=== PATIENT | male | born 1960 | race Caucasian/White ===

== ENCOUNTER 2021-04-30 21:07 | Emergency (ER) | payer OTHER | END 2021-05-01 00:25 | disposition left against medical advice (07) | LOC: ER 21:07 | DX: L02.91 Cutaneous abscess, unspecified (principal); Z53.21 Procedure and treatment not carried out due to patient leaving prior to being seen by health care provider ==

== ENCOUNTER 2021-10-31 20:15 | Inpatient (IN) | payer OTHER ==
[~2021-10-31] VITALS: Ht 190.5 cm; Wt 114.6 kg
[2021-10-31 20:15] VITALS: BP 178/104
[~2021-10-31 20:15] MED LIST: AMLO-186 PO; FLUT16SP NS; LACT20SO PO; ONDA4TAB12 PO; PROP120C48 PO
[2021-10-31] MEDS ORDERED: MORPHINE SULFATE 2 MG/ML INJ. IVP PRN (22:30)
[2021-10-31] MEDS ORDERED: ONDANSETRON PF 4 MG/2 ML VIAL. IVP PRN (22:30)
[2021-10-31] MEDS: DEXAMETHASONE SOD PHOS 4 MG/ML VIAL IVP SCH (22:44)
[2021-10-31 23:11] VITALS: BP 162/103
[2021-10-31] MEDS: HYDROcodone/APAP 5/325MG 1 TAB TABLET PO PRN (23:28)
[2021-10-31] MEDS ORDERED: PANT40TA77 PO (23:41)
[2021-10-31] MEDS ORDERED: MULT-732 PO (23:41)
[2021-11-01] VITALS (7 sets, daily range): BP systolic 144–189; BP diastolic 80–118
[2021-11-01] MEDS: HYDROmorphone 2 MG/ML INJ. IVP PRN ×7 (01:26→21:12)
[2021-11-01] MEDS: hydrALAZINE 20 MG/ML VIAL. IVP PRN ×2 (02:42→08:53)
[2021-11-01] MEDS: HYDROcodone/APAP 5/325MG 1 TAB TABLET PO PRN ×7 (02:43→22:45)
[2021-11-01 07:41] LABS: BASO % 1 % (0-3); EOS % 0 % (0-3); HEMOGLOBIN 13.3 g/dL (13.0-17.5); LYMPH # 0.5 x10^3/uL (1.0-4.8); LYMPH % 25 % (24-48); MEAN CORPUSCULAR HEMOGLOBIN 32 pg (25-35); MEAN CORPUSCULAR HGB CONC 33 g/dL (31-37); MEAN CORPUSCULAR VOLUME 96 fL (79-100); MONO # 0.1 x10^3/uL (0.0-1.1); MONO % 3 % (0-9); NEUT # 1.4 x10^3/uL (1.8-7.7); NEUT % 71 % (31-73); PLATELET COUNT 46 x10^3/uL (140-400); RED BLOOD COUNT 4.15 x10^6/uL (4.30-5.70); RED CELL DISTRIBUTION WIDTH 16.4 % (11.5-14.5)
[2021-11-01 07:49] LABS: ALBUMIN 2.6 g/dL (3.4-5.0); ALBUMIN/GLOBULIN RATIO 0.4 (1.0-1.7); CALCIUM 8.2 mg/dL (8.5-10.1); CREATININE 0.7 mg/dL (0.7-1.3); TOTAL PROTEIN 8.6 g/dL (6.4-8.2)
[2021-11-01 07:50] LABS: GFR 115.4; POTASSIUM 4.1 mmol/L (3.5-5.1); TOTAL BILIRUBIN 2.1 mg/dL (0.2-1.0)
[2021-11-01 07:52] LABS: PROTHROMBIN TIME PATIENT 17.7 SEC (11.7-14.0)
[2021-11-01] MEDS: ENOXAPARIN 40 MG/0.4 ML SYRINGE. SQ SCH (08:35)
[2021-11-01] MEDS: DEXAMETHASONE SOD PHOS 4 MG/ML VIAL IVP SCH (08:52)
[2021-11-01] MEDS: LACTOBACILLUS RHAMNOSUS GG 1 CAPSULE. PO SCH ×2 (08:53→21:08)
--- NOTE | 2021-11-01 09:14 | PDOC1 ---
History and Physical Date of Admission Date of Admission DATE: 11/01/21 TIME: 09:12 Identification/Chief Complaint Chief Complaint Abdominal pain, shortness of breath Source Source: Caregiver, Patient History of Present Illness History of Present Illness Mr Randal Salomon" is a 61-year-old male w/ PMHx GERD, depression, COPD, HTN, alcohol use disorder and heroin use disorder in sustained remission, and end- stage liver disease who presents to ED at [facility] in [place] 10/31/21 with lower abdominal pain progressive shortness of breath. Patient states he has had abdominal pain for the past 3 or 4 months but has amplified over the last couple of days and it is now severe, patient also has increased work of breathing and worsening confusion. Patient does have a past medical history of liver failure, he states he has not followed up with anybody recently he does see Dr. Whitley and was supposed to see them last but missed his appointment because he did not have a ride. Patient states he has had a paracentesis in the past but has not had one recently. He states 5 [address]. Guillermo at [facility] and was diagnosed with cirrhosis and he stopped drinking at that time. He has gotten progressively weaker over the last year and lost over 100 pounds in the last 4 months according to him and his sister who conferences sent over the phone to supplement history due to his confusion. His sister notes that he has been evaluated by hospice and they were worried that "the nurses were just waiting for him to at home" and they have asked to be evaluated by another hospice company while inpatient. WBC 3, Hb 13, platelets 55, NA 138, K3.7, BUN 6, CR 0.7, glucose 126, calcium 7.9, bilirubin 1.7, AST 69, ALT 34, alkaline phosphatase 134, ammonia 26, NT proBNP 38, high-sensitivity troponin is 8, albumin is 2.5, rapid COVID-19 positive EKG sinus tachycardia rate 117 bpm T flattening in anterior septal leads no ST elevations QTC 468. CT abdomen pelvis shows large right pleural effusion with small ascites and hepatic cirrhosis with portal hypertension as well as splenomegaly. Also with distant: Rectal wall thickening bladder wall thickening and diverticulosis. Due to the severity of his symptoms and lack of gastroenterology or interventional radiology, pulmonology was called for [facility] for further assessment and treatment. Past Medical History Cardiovascular: HTN, Hyperlipidemia Pulmonary: COPD Hepatobiliary: Cirrhosis Past Surgical History Past Surgical History steel plate in lt eye socket, lower jaw and dylan lower legs Past Surgical History: Cholecystectomy (2019) Family History Family History: High Cholestrol, Hypertension Social History Smoke: 1 pack per day ALCOHOL: other (Quit in 2017) Drugs: Heroin (in remission) Current Medications Current Medications Current Medications Morphine Sulfate (Morphine Sulfate) 2 mg PRN Q4HRS PRN IVP PAIN Last administered on 10/31/21at 22:43; Start 10/31/21 at 22:30; Stop 11/01/21 at 01:08; Status DC Acetaminophen/ Hydrocodone Bitart (Lortab 5/325) 1 tab PRN Q3HRS PRN PO PAIN Last administered on 11/01/21at 08:52; Start 10/31/21 at 22:30 Hydralazine HCl (Apresoline Inj) 10 mg PRN Q4HRS PRN IVP ELEVATED BP, SEE COMMENTS Last administered on 11/01/21at 08:53; Start 10/31/21 at 22:30 Enoxaparin Sodium (Lovenox 40mg Syringe) 40 mg DAILY SQ ; Start 11/01/21 at 09:00 Dexamethasone Sodium Phosphate (Decadron) 6 mg DAILY IVP Last administered on 11/01/21at 08:52; Start 10/31/21 at 22:30 Ondansetron HCl (Zofran) 4 mg PRN Q4HRS PRN IVP NAUSEA/VOMITING Last administered on 11/01/21at 00:10; Start 10/31/21 at 22:30 Ceftriaxone Sodium (Rocephin) 1 gm Q24H IVP ; Start 11/01/21 at 19:00 Lactobacillus Rhamnosus (Culturelle) 1 cap BID PO Last administered on 11/01/21at 08:53; Start 11/01/21 at 09:00 Hydromorphone HCl (Dilaudid) 1 mg PRN Q3HRS PRN IVP SEVERE PAIN 7-10 Last administered on 11/01/21at 07:33; Start 11/01/21 at 01:15 Active Scripts Active Reported Men's 50 Plus Multivitamin Tab (Multivit-Min/Folic/Vit K/Lycop) 1 Each Tablet 1 Each PO DAILY Pantoprazole Sodium (Pantoprazole Sodium) 40 Mg Tablet.dr 40 Mg PO DAILYAC Inderal Xl (Propranolol Hcl) 120 Mg Cap.er.24h 120 Mg PO DAILY Ondansetron Odt (Ondansetron) 4 Mg Tab.rapdis 8 Mg PO PRN TID PRN Lactulose 20 Gm/30 Ml Solution 20 Gm PO TID Fluticasone Propionate Nasal [place] (Fluticasone Propionate) 16 Gm [place].susp 2 [place] NS PRN DAILY PRN Amlodipine Besylate 5 Mg Tablet 5 Mg PO DAILY Allergies Allergies: Coded Allergies: gabapentin (Verified Adverse Reaction, Severe, Nausea and Vomiting, 10/31/21) ROS General: YES: Fatigue, Malaise, Appetite; No: Chills, Night Sweats, Other PSYCHOLOGICAL ROS: YES: Anxiety, Concentration difficultie, Decreased libido, Depression, Disorientation, Memory difficulties; No: Behavioral Disorder, Hallucinations, Hostility, Irritablity, Mood Swings, Obsessive thoughts, Physical abuse, Sexual abuse, Sleep disturbances, Suicidal ideation, Other Eyes: No Blurry vision, No Decreased vision, No Double vision, No Dry eyes, No Excessive tearing, No Eye Pain, No Itchy Eyes, No Loss of vision, No Photophobia, No Scotomata, No Uses contacts, No Uses glasses, No Other HEENT: No: Heacaches, Visual Changes, Hearing change, Nasal congestion, Nasal discharge, Oral lesions, Sinus pain, Sore Throat, Epistaxis, Sneezing, Snoring, Tinnitus, Vertigo, Vocal changes, Other ALLERGY AND IMMUNOLOGY: No: Hives, Insect Bite Sensitivity, Itchy/Watery Eyes, Nasal Congestion, Post Nasal Drip, Seasonal Allergies, Other Hematological and Lymphatic: No: Bleeding Problems, Blood Clots, Blood Transfusions, Brusing, Night Sweats, Pallor, Swollen Lymph Nodes, Other ENDOCRINE: No: Breast Changes, Galactorrhea, Hair Pattern Changes, Hot Flashes, Malaise/lethargy, Mood Swings, Palpitations, Polydipsia/polyuria, Skin Changes, Temperature Intolerance, Unexpected Weight Changes, Other Breast: No New/Changing Breast Lumps, No Nipple changes, No Nipple discharge, No Other Respiratory: YES: Shortness of breath, SOB with excertion; No: Cough, Hemoptysis, Orthopnea, Pleuritic Pain, Sputum Changes, Stridor, Tachypnea, Wheezing, Other Cardiovascular: No Chest Pain, No Palpitations, No Orthopnea, No Paroxysmal Noc. Dyspnea, No Edema, No Lt Headedness, No Other Gastrointestinal: Yes Nausea, Yes Abdominal Pain; No Vomiting, No Diarrhea, No Constipation, No Melena, No Hematochezia, No Other Genitourinary: No Dysuria, No Frequency, No Incontinence, No Hematuria, No Rete ntion, No Discharge, No Urgency, No Pain, No Flank Pain, No Other, No , No , No , No , No , No , No Musculoskeletal: Yes Muscular Weakness; No Gait Disturbance, No Joint Pain, No Joint Stiffness, No Joint Swelling, No Muscle Pain, No Pain In:, No Swelling In:, No Other Neurological: Yes Gait Disturbance; No Behavorial Changes, No Bowel/Bladder ControlChng, No Confusion, No Dizziness, No Headaches, No Impaired Coord/balance, No Memory Loss, No Numbness/Tingling, No Seizures, No Speech Problems, No Tremors, No Visual Changes, No Weakness, No Other Skin: No Dry Skin, No Eczema, No Hair Changes, No Lumps, No Mole Changes, No Mottling, No Nail Changes, No Pruritus, No Rash, No Skin Lesion Changes, No Other, No Acne Physical Exam General: Alert, Cooperative, moderate distress HEENT: Atraumatic, PERRLA, EOMI, Mucous membr. moist/pink, Other (scleral icterus) Lungs: Other (Decreased air movement on right) Heart: S1S2, RRR, no thrills, no rubs, no gallops, no murmurs Abdomen: Normal bowel sounds, Soft, No hepatosplenomegaly, No masses, Other (Distended, suprapubic tenderness) Rectal Exam: hemorrhoids Extremities: No clubbing, No cyanosis, No edema, Normal pulses, No tenderness/swelling Skin: Other (xerosis bilateral legs) Neuro: Normal speech, Strength at 5/5 X4 ext, Normal tone, Sensation intact, Cranial nerves 3-12 NL, Reflexes 2+ Psych/Mental Status: Other (Confused) Vitals Vitals Vital Signs Date Time Temp Pulse Resp B/P (MAP) Pulse Ox O2 Delivery O2 Flow Rate FiO2 11/01/21 08:53 180/113 11/01/21 08:52 Room Air 11/01/21 07:00 97.8 103 20 92 2.0 97.8 Labs Labs Laboratory Tests Test 10/31/21 23:20 11/01/21 07:05 D-Dimer (Jami) 4.96 ug/mlFEU (0.00-0.50) White Blood Count 2.0 x10^3/uL (4.0-11.0) Red Blood Count 4.15 x10^6/uL (4.30-5.70) Hemoglobin 13.3 g/dL (13.0-17.5) Hematocrit 40.0 % (39.0-53.0) Mean Corpuscular Volume 96 fL (79-100) Mean Corpuscular Hemoglobin 32 pg (25-35) Mean Corpuscular Hemoglobin Concent 33 g/dL (31-37) Red Cell Distribution Width 16.4 % (11.5-14.5) Platelet Count 46 x10^3/uL (140-400) Neutrophils (%) (Auto) 71 % (31-73) Lymphocytes (%) (Auto) 25 % (24-48) Monocytes (%) (Auto) 3 % (0-9) Eosinophils (%) (Auto) 0 % (0-3) Basophils (%) (Auto) 1 % (0-3) Neutrophils # (Auto) 1.4 x10^3/uL (1.8-7.7) Lymphocytes # (Auto) 0.5 x10^3/uL (1.0-4.8) Monocytes # (Auto) 0.1 x10^3/uL (0.0-1.1) Eosinophils # (Auto) 0.0 x10^3/uL (0.0-0.7) Basophils # (Auto) 0.0 x10^3/uL (0.0-0.2) Prothrombin Time 17.7 SEC (11.7-14.0) Prothromb Time International Ratio 1.5 (0.8-1.1) Activated Partial Thromboplast Time 36 SEC (24-38) Sodium Level 139 mmol/L (136-145) Potassium Level 4.1 mmol/L (3.5-5.1) Chloride Level 102 mmol/L (98-107) Carbon Dioxide Level 25 mmol/L (21-32) Anion Gap 12 (6-14) Blood Urea Nitrogen 10 mg/dL (8-26) Creatinine 0.7 mg/dL (0.7-1.3) Estimated GFR (Cockcroft-Gault) 115.4 BUN/Creatinine Ratio 14 (6-20) Glucose Level 156 mg/dL (70-99) Calcium Level 8.2 mg/dL (8.5-10.1) Total Bilirubin 2.1 mg/dL (0.2-1.0) Aspartate Amino Transf (AST/SGOT) 60 U/L (15-37) Alanine Aminotransferase (ALT/SGPT) 33 U/L (16-63) Alkaline Phosphatase 130 U/L (46-116) Total Protein 8.6 g/dL (6.4-8.2) Albumin 2.6 g/dL (3.4-5.0) Albumin/Globulin Ratio 0.4 (1.0-1.7) Laboratory Tests Test 10/31/21 23:20 11/01/21 07:05 D-Dimer (Jami) 4.96 ug/mlFEU (0.00-0.50) White Blood Count 2.0 x10^3/uL (4.0-11.0) Red Blood Count 4.15 x10^6/uL (4.30-5.70) Hemoglobin 13.3 g/dL (13.0-17.5) Hematocrit 40.0 % (39.0-53.0) Mean Corpuscular Volume 96 fL (79-100) Mean Corpuscular Hemoglobin 32 pg (25-35) Mean Corpuscular Hemoglobin Concent 33 g/dL (31-37) Red Cell Distribution Width 16.4 % (11.5-14.5) Platelet Count 46 x10^3/uL (140-400) Neutrophils (%) (Auto) 71 % (31-73) Lymphocytes (%) (Auto) 25 % (24-48) Monocytes (%) (Auto) 3 % (0-9) Eosinophils (%) (Auto) 0 % (0-3) Basophils (%) (Auto) 1 % (0-3) Neutrophils # (Auto) 1.4 x10^3/uL (1.8-7.7) Lymphocytes # (Auto) 0.5 x10^3/uL (1.0-4.8) Monocytes # (Auto) 0.1 x10^3/uL (0.0-1.1) Eosinophils # (Auto) 0.0 x10^3/uL (0.0-0.7) Basophils # (Auto) 0.0 x10^3/uL (0.0-0.2) Prothrombin Time 17.7 SEC (11.7-14.0) Prothromb Time International Ratio 1.5 (0.8-1.1) Activated Partial Thromboplast Time 36 SEC (24-38) Sodium Level 139 mmol/L (136-145) Potassium Level 4.1 mmol/L (3.5-5.1) Chloride Level 102 mmol/L (98-107) Carbon Dioxide Level 25 mmol/L (21-32) Anion Gap 12 (6-14) Blood Urea Nitrogen 10 mg/dL (8-26) Creatinine 0.7 mg/dL (0.7-1.3) Estimated GFR (Cockcroft-Gault) 115.4 BUN/Creatinine Ratio 14 (6-20) Glucose Level 156 mg/dL (70-99) Calcium Level 8.2 mg/dL (8.5-10.1) Total Bilirubin 2.1 mg/dL (0.2-1.0) Aspartate Amino Transf (AST/SGOT) 60 U/L (15-37) Alanine Aminotransferase (ALT/SGPT) 33 U/L (16-63) Alkaline Phosphatase 130 U/L (46-116) Total Protein 8.6 g/dL (6.4-8.2) Albumin 2.6 g/dL (3.4-5.0) Albumin/Globulin Ratio 0.4 (1.0-1.7) Images Images Abdomen and pelvis CT with intravenous contrast. FINDINGS: Evaluation of the lower thorax demonstrates a large right pleural effusion and right upper and middle lobe collapse. There are also also compressive atelectasis involving the inferior right upper lobe. The heart is normal in size. There is hepatic cirrhosis. No focal hepatic lesion is seen. The gallbladder is absent. The pancreas is unremarkable. The spleen is enlarged, measuring 20 cm. The adrenal glands are unremarkable. There is a small simple cyst within the lower pole the right kidney. Follow-up is not routinely performed for simple cysts. There is a small to moderate amount of ascites in a predominantly perihepatic distribution. There is diffuse mesenteric stranding likely due to the presence of ascites. There is wall thickening involving loops of bowel throughout the abdomen, likely reactive in the presence of ascites. There is no bowel o bstruction. There is distal colonic diverticulosis. There is no convincing diverticulitis. There is urinary bladder wall thickening likely due to relative under distention. There is rectal wall thickening. There is a collection of ascites fluid within a right inguinal hernia, stable in appearance. There has been slight interval increase in ascites fluid within small periumbilical hernias. The aorta is normal in caliber. There are stable prominent retroperitoneal and mesenteric lymph nodes. There is no acute or suspicious osseous finding. There is a mild chronic compression deformity of T7. There is an L3 limbus vertebrae, an incidental finding. IMPRESSION: 1. Large right pleural effusion with associated collapse of the right middle and lower lobe and compressive atelectasis of the right upper lobe. 2. Small ascites in a predominant a perihepatic distribution. This decreased compared to the prior exam. 3. Hepatic cirrhosis with associated portal hypertension resulting in splenomegaly and aforementioned ascites. 4. Cervical vertebral wall thickening involving multiple loops of bowel throughout the abdomen. This can be reactive in the setting of ascites. The possibility of enteritis is not excluded. 5. Distal colonic and rectal wall thickening. This may also be reactive or due to colitis/proctitis of infectious or inflammatory etiologies. 6. Bladder wall thickening. Correlate with urinalysis to exclude cystitis. 7. Colonic diverticulosis. VTE Prophylaxis Ordered VTE Prophylaxis Devices: Yes VTE Pharmacological Prophylaxi: No Assessment/Plan Assessment/Plan A/P: Abdominal pain - likely due to abdominal distention, some possible cystitis, will check UA Ascites due to alcoholic cirrhosis - minimal Right Pleural effusion - consulted IR for thoracentesis. Cytology, fluid analysis Hepatic cirrhosis- with associated portal hypertension resulting in splenomegaly. MELD 14 currently COVID 19 - not vaccinated, not hypoxic. Will give supportive care, monitor, high risk for mortality Distal colonic and rectal wall thickening - with pain could be colitis, no diarrhea, and he is a poor historian Bladder wall thickening - will check UA given his suprapubic pain Colonic diverticulosis. Leukopenia - likely cirrhosis and COVID 19 related Thrombocytopenia - likely cirrhosis related, will hold heparin for procedure and for platelets < 50 Unintentional weight loss -may be developing HCC. His liver disease is progressed. Hospice is appropriate. Per family wishes will refer to a different hospice organization. FEN - regular diet PPX - SCDs CODE - DNR/DNI Dispo - inpatient for above. At least 6% 3-month mortality. Justifications for Admission Other Justification AUTUMN ZAVALA MD Nov 01, 2021 09:14
[2021-11-01] MEDS ORDERED: ONDANSETRON ODT 4 MG TAB.RAPDIS. PO PRN (09:15)
[2021-11-01] MEDS ORDERED: FLUTICASONE 50MCG/NASAL SPRAY 16GM BOTTLE. NS PRN (09:15)
--- NOTE | 2021-11-01 09:19 | RAD ---
EXAM: Chest, single view. HISTORY: Pleural effusion. Lung collapse. COMPARISON: 05/11/2021 FINDINGS: A frontal view of the chest is obtained. There is a moderate right pleural effusion with ri ght middle and lower lobe compressive atelectasis or collapse. There is left basilar atelectasis. The re is no pneumothorax. The heart is normal in size. IMPRESSION: 1. Moderate right pleural effusion with right middle and lower lobe compressive atelectasis or collap se. 2. Left basilar atelectasis. Electronically signed by: Chata Motta MD (11/01/2021 9:17 AM) [id number]
[2021-11-01] MEDS: LACTULOSE 20 GM/30 ML SOLUTION. PO SCH ×3 (09:36→21:08)
[2021-11-01] MEDS: PANTOPRAZOLE 40 MG TABLET.DR. PO SCH (09:36)
[2021-11-01] MEDS: MULTIVITAMIN with MINERAL TABLET. PO SCH (09:36)
[2021-11-01] MEDS: PROPRANOLOL ER 60 MG CAP.SA.24H. PO SCH (09:37)
[2021-11-01] MEDS ORDERED: ALBUTEROL SULFATE 2.5 MG/3 ML NEBU. NEB PRN (10:15)
--- NOTE | 2021-11-01 10:43 | RAD ---
] Thoracentesis 11/01/2021 9:19 AM Clinical History: Right pleural effusion. Shortness of breath. Chest pain Technique: Relative benefits risks and alternatives were discussed with the patient and/or their rep resentative. Written informed consent was obtained. The patient was placed in seated position. A jacobo eout procedure was performed. Sonographic assessment demonstrates a large pleural effusion. A site for skin entry was selected, and subsequently prepped and draped using sterile barrier technique. 1% lidocaine without epinepherine was administered for local anesthesia to the skin and subcutaenous tissues. A 5 English sheathed needle was passed into the pleural space. Clear yellow fluid was aspirated and t he catheter was connected to a vacuum. Approximately 2.3 liters of fluid were drained. The catheter w as removed and adequate hemostasis was obtained. A sterile dressing was applied. The patient tolerat ed the procedure well, without complications. Impression: Successful ultrasound guided thoracentesis with removal 2.3 liters of fluid. Electronically signed by: Heriberto Fay MD (11/01/2021 10:41 AM) [id number]
--- NOTE | 2021-11-01 11:28 | NUR ---
SS following for discharge planning. SS reviewed pt chart and discussed with pt RN. Pt is from home with spouse and is currently requiring oxygen at three liters nasal canula. COVID19 positive. Pt on IV Rocephin. Thoracentesis today. Pt was on services with [facility] at home but does not want to return on [facility]. Per RN, pt requesting new hospice company with no preference. Referral phoned and faxed to [facility], ; fax [phone]. SS will continue to follow for discharge planning. Addendum: 11/01/21 at 1159 by OZIEL NOEL SS and [facility] spoke with pt's spouse via phone. Pt's spouse requesting to put hospice on back burner at this time and requesting referral for Palliative Care services. Referrals phoned and faxed to [facility] and [facility]. Pt's RN and physician notified. Addendum: 11/01/21 at 1631 by OZIEL NOEL Pt accepted on services with [facility].
[2021-11-01 13:20] LABS: BF CLARITY CLEAR; BF COLOR YELLOW; BF RBC COUNT 155 /cmm (Not Established); BF SOURCE PLEURAL; BF WBC COUNT 209 /cmm (Not Established)
[2021-11-01 13:21] LABS: BF MON % 35 %; BF OTHER % 45 %; BF PMN % 20 %
--- NOTE | 2021-11-01 14:05 | PDOC ---
PULMONARY PROGRESS NOTES DATE: 11/01/21 TIME: 14:04 Vitals Vital Signs Date Time Temp Pulse Resp B/P (MAP) Pulse Ox O2 Delivery O2 Flow Rate FiO2 11/01/21 13:33 Nasal [place] 11/01/21 10:08 109 172/95 (120) 92 3.0 11/01/21 07:00 97.8 20 97.8 Labs Laboratory Tests Test 10/31/21 23:20 11/01/21 07:05 11/01/21 09:17 D-Dimer (Jami) 4.96 ug/mlFEU (0.00-0.50) White Blood Count 2.0 x10^3/uL (4.0-11.0) Red Blood Count 4.15 x10^6/uL (4.30-5.70) Hemoglobin 13.3 g/dL (13.0-17.5) Hematocrit 40.0 % (39.0-53.0) Mean Corpuscular Volume 96 fL (79-100) Mean Corpuscular Hemoglobin 32 pg (25-35) Mean Corpuscular Hemoglobin Concent 33 g/dL (31-37) Red Cell Distribution Width 16.4 % (11.5-14.5) Platelet Count 46 x10^3/uL (140-400) Neutrophils (%) (Auto) 71 % (31-73) Lymphocytes (%) (Auto) 25 % (24-48) Monocytes (%) (Auto) 3 % (0-9) Eosinophils (%) (Auto) 0 % (0-3) Basophils (%) (Auto) 1 % (0-3) Neutrophils # (Auto) 1.4 x10^3/uL (1.8-7.7) Lymphocytes # (Auto) 0.5 x10^3/uL (1.0-4.8) Monocytes # (Auto) 0.1 x10^3/uL (0.0-1.1) Eosinophils # (Auto) 0.0 x10^3/uL (0.0-0.7) Basophils # (Auto) 0.0 x10^3/uL (0.0-0.2) Prothrombin Time 17.7 SEC (11.7-14.0) Prothromb Time International Ratio 1.5 (0.8-1.1) Activated Partial Thromboplast Time 36 SEC (24-38) Sodium Level 139 mmol/L (136-145) Potassium Level 4.1 mmol/L (3.5-5.1) Chloride Level 102 mmol/L (98-107) Carbon Dioxide Level 25 mmol/L (21-32) Anion Gap 12 (6-14) Blood Urea Nitrogen 10 mg/dL (8-26) Creatinine 0.7 mg/dL (0.7-1.3) Estimated GFR (Cockcroft-Gault) 115.4 BUN/Creatinine Ratio 14 (6-20) Glucose Level 156 mg/dL (70-99) Calcium Level 8.2 mg/dL (8.5-10.1) Total Bilirubin 2.1 mg/dL (0.2-1.0) Aspartate Amino Transf (AST/SGOT) 60 U/L (15-37) Alanine Aminotransferase (ALT/SGPT) 33 U/L (16-63) Alkaline Phosphatase 130 U/L (46-116) Total Protein 8.6 g/dL (6.4-8.2) Albumin 2.6 g/dL (3.4-5.0) Albumin/Globulin Ratio 0.4 (1.0-1.7) Body Fluid Source Pleural Body Fluid Color Yellow Body Fluid Clarity Clear Body Fluid pH 7.51 Body Fluid Nucleated Cells 209 /cmm (Not Established) Body Fluid Mononuclear WBCs (%) 35 % Body Fluid Polymorphonuclear Cells 20 % Body Fluid Total RBCs Counted 155 /cmm (Not Established) Body Fluid Other Cells (%) 45 % Laboratory Tests Test 10/31/21 23:20 11/01/21 07:05 11/01/21 09:17 D-Dimer (Jami) 4.96 ug/mlFEU (0.00-0.50) White Blood Count 2.0 x10^3/uL (4.0-11.0) Red Blood Count 4.15 x10^6/uL (4.30-5.70) Hemoglobin 13.3 g/dL (13.0-17.5) Hematocrit 40.0 % (39.0-53.0) Mean Corpuscular Volume 96 fL (79-100) Mean Corpuscular Hemoglobin 32 pg (25-35) Mean Corpuscular Hemoglobin Concent 33 g/dL (31-37) Red Cell Distribution Width 16.4 % (11.5-14.5) Platelet Count 46 x10^3/uL (140-400) Neutrophils (%) (Auto) 71 % (31-73) Lymphocytes (%) (Auto) 25 % (24-48) Monocytes (%) (Auto) 3 % (0-9) Eosinophils (%) (Auto) 0 % (0-3) Basophils (%) (Auto) 1 % (0-3) Neutrophils # (Auto) 1.4 x10^3/uL (1.8-7.7) Lymphocytes # (Auto) 0.5 x10^3/uL (1.0-4.8) Monocytes # (Auto) 0.1 x10^3/uL (0.0-1.1) Eosinophils # (Auto) 0.0 x10^3/uL (0.0-0.7) Basophils # (Auto) 0.0 x10^3/uL (0.0-0.2) Prothrombin Time 17.7 SEC (11.7-14.0) Prothromb Time International Ratio 1.5 (0.8-1.1) Activated Partial Thromboplast Time 36 SEC (24-38) Sodium Level 139 mmol/L (136-145) Potassium Level 4.1 mmol/L (3.5-5.1) Chloride Level 102 mmol/L (98-107) Carbon Dioxide Level 25 mmol/L (21-32) Anion Gap 12 (6-14) Blood Urea Nitrogen 10 mg/dL (8-26) Creatinine 0.7 mg/dL (0.7-1.3) Estimated GFR (Cockcroft-Gault) 115.4 BUN/Creatinine Ratio 14 (6-20) Glucose Level 156 mg/dL (70-99) Calcium Level 8.2 mg/dL (8.5-10.1) Total Bilirubin 2.1 mg/dL (0.2-1.0) Aspartate Amino Transf (AST/SGOT) 60 U/L (15-37) Alanine Aminotransferase (ALT/SGPT) 33 U/L (16-63) Alkaline Phosphatase 130 U/L (46-116) Total Protein 8.6 g/dL (6.4-8.2) Albumin 2.6 g/dL (3.4-5.0) Albumin/Globulin Ratio 0.4 (1.0-1.7) Body Fluid Source Pleural Body Fluid Color Yellow Body Fluid Clarity Clear Body Fluid pH 7.51 Body Fluid Nucleated Cells 209 /cmm (Not Established) Body Fluid Mononuclear WBCs (%) 35 % Body Fluid Polymorphonuclear Cells 20 % Body Fluid Total RBCs Counted 155 /cmm (Not Established) Body Fluid Other Cells (%) 45 % Medications Active Scripts Medications Dose Route/Sig Max Daily Dose Days Date Category Men's 50 Plus Multivitamin Tab (Multivit-Min/Folic/Vit K/Lycop) 1 Each Tablet 1 Each PO DAILY 10/31/21 Reported Pantoprazole Sodium (Pantoprazole Sodium) 40 Mg Tablet.dr 40 Mg PO DAILYAC 10/31/21 Reported Inderal Xl (Propranolol Hcl) 120 Mg Cap.er.24h 120 Mg PO DAILY 05/09/21 Reported Ondansetron Odt (Ondansetron) 4 Mg Tab.rapdis 8 Mg PO PRN TID PRN 05/09/21 Reported Lactulose 20 Gm/30 Ml Solution 20 Gm PO TID 05/09/21 Reported Fluticasone Propionate Nasal [place] (Fluticasone Propionate) 16 Gm [place].susp 2 [place] NS PRN DAILY PRN 05/09/21 Reported Amlodipine Besylate 5 Mg Tablet 5 Mg PO DAILY 05/09/21 Reported Impression . Consult dictated Thoracentesis performed earlier today Follow-up on results Continue antibiotics Suspect pleural fluid related to cirrhosis JORDYN BAI MD Nov 01, 2021 14:05
[2021-11-01 16:24] LABS: BILIRUBIN,URINE NEGATIVE (NEG); CLARITY,URINE CLEAR; COLOR,URINE AMBER; NITRITE,URINE NEGATIVE (NEG); PH,URINE 6.5 (<5.0-8.0); PROTEIN,URINE 30 mg/dL (NEG-TRACE)
[2021-11-01 16:31] LABS: BACTERIA,URINE 0 /HPF (0-FEW); RBC,URINE >40 /HPF (0-2); WBC,URINE OCC /HPF (0-4)
[2021-11-01] MEDS ORDERED: cefTRIAXone IV Push 1 GM VIAL. IVP SCH (19:00)
--- NOTE | 2021-11-01 19:47 | CONS ---
DATE OF CONSULTATION: 11/01/2021 ATTENDING PHYSICIAN: Dr. Lock. REASON FOR CONSULTATION: The patient is seen in pulmonary consultation at the request of Dr. Lock for large right-sided effusion. HISTORY OF PRESENT ILLNESS: The patient is a 61-year-old that presented to [facility] for increasing shortness of breath. No fever, chills or night sweats. Cough, mostly nonproductive. He had a chest x-ray revealing right-sided pleural effusion. He was transferred to [place] for further management. Past medical history is remarkable for gastroesophageal reflux, depression, COPD, hypertension, alcohol abuse, and also prior history of cirrhosis. PAST MEDICAL HISTORY: Hypertension, hyperlipidemia, COPD, cirrhosis, the patient states that he has never smoked. PAST SURGICAL HISTORY: Previous cholecystectomy. FAMILY HISTORY: Hypertension. SOCIAL HISTORY: He quit tobacco in 2017. The patient states he has never smoked. According to the current admission, he smokes daily. There is also history of heroin use. ALLERGIES: GABAPENTIN. CURRENT MEDICATIONS: List was reviewed. REVIEW OF SYSTEMS: As indicated above, otherwise other systems were reviewed and negative. PHYSICAL EXAMINATION: VITAL SIGNS: Stable. O2 saturation greater than 92%. He is currently on 2 liters. HEENT: Eyes: The sclerae were nonicteric. NECK: Jugular venous distention was not elevated. No lymphadenopathy. CHEST: Full expansion. LUNGS: Diminished breath sounds in the bases. CARDIOVASCULAR: Regular rate and rhythm with S1, S2. No S3. ABDOMEN: Soft, slightly distended. EXTREMITIES: No clubbing, cyanosis or edema. LABORATORY DATA: Reviewed. AST and ALT were elevated. Albumin was low. White count was low. Hemoglobin and hematocrit were noted. Chest x-ray as indicated above. IMPRESSION: 1. Acute hypoxemic respiratory failure related to large right-sided effusion. 2. Effusion, suspect may be related to his history of cirrhosis, rule out parapneumonic effusion. 3. Leukopenia. 4. Cirrhosis. 5. History of tobacco dependent. 6. History of heroin use. 7. Severe protein malnutrition present upon admission. 8. Ascites, the patient states that he has had previous paracentesis. PLAN: 1. We will proceed with thoracentesis. 2. Continue empiric antibiotics. 3. Monitor labs. 4. The patient currently is a DNR/DNI. 5. DVT prophylaxis. 6. Steroids. I do appreciate the privilege in sharing in patient's care. ALYSE DR: Parish TID: [id number]
[2021-11-02 03:00] VITALS: BP 123/61
[2021-11-02] MEDS: HYDROmorphone 2 MG/ML INJ. IVP PRN ×2 (03:48→08:34)
[2021-11-02] MEDS: PANTOPRAZOLE 40 MG TABLET.DR. PO SCH (06:14)
[2021-11-02] MEDS: HYDROcodone/APAP 5/325MG 1 TAB TABLET PO PRN ×4 (06:17→16:38)
[2021-11-02 06:33] LABS: PROTHROMBIN TIME PATIENT 18.1 SEC (11.7-14.0)
[2021-11-02 06:35] LABS: ALBUMIN 2.3 g/dL (3.4-5.0); ALBUMIN/GLOBULIN RATIO 0.5 (1.0-1.7); CALCIUM 8.2 mg/dL (8.5-10.1); CREATININE 0.7 mg/dL (0.7-1.3); GFR 115.4; POTASSIUM 4.6 mmol/L (3.5-5.1); TOTAL BILIRUBIN 1.8 mg/dL (0.2-1.0); TOTAL PROTEIN 7.3 g/dL (6.4-8.2)
[2021-11-02 07:00] VITALS: BP 136/76
[2021-11-02] MEDS: LACTULOSE 20 GM/30 ML SOLUTION. PO SCH ×2 (08:33→13:04)
[2021-11-02] MEDS: ENOXAPARIN 40 MG/0.4 ML SYRINGE. SQ SCH (08:34)
[2021-11-02] MEDS: MULTIVITAMIN with MINERAL TABLET. PO SCH (08:34)
[2021-11-02] MEDS: LACTOBACILLUS RHAMNOSUS GG 1 CAPSULE. PO SCH (08:34)
[2021-11-02] MEDS: DEXAMETHASONE SOD PHOS 4 MG/ML VIAL IVP SCH (08:34)
[2021-11-02] MEDS: PROPRANOLOL ER 60 MG CAP.SA.24H. PO SCH (08:35)
--- NOTE | 2021-11-02 10:08 | PDOC2 ---
GI CONSULT Date of Service: DATE: 11/02/21 TIME: 10:08 Reason For Consult: ascites, cirrhosis HPI: HPI: 61 y/o male sent from [facility] w/ COVID, c/o SOA, lower abd pain. Reviewed H&P which indicates CT A/P @ [facility] showed large right pleural effusion with small ascites and hepatic cirrhosis with portal hypertension as well as splenomegaly; also rectal wall thickening, bladder wall thickening, and diverticulosis. H/o cirrhosis and ascites, reports previous paracentesis @ [facility]. H/o alcohol overuse - reports of sobriety but tells me last drank during the [place] last Friday. Additional h/o Hep C - reports was treated 5 years ago but it came back after he used drugs even though he didn't share anything with anybody. Not on diuretics, does take lactulose at home. Breathing better after thoracentesis. H/o GERD. No dysphagia, n/v, change in appetite, constipation, hematochezia, or melena. Has lost 100 pounds - doesn't know why because he's eating. Liquid yellow stools on lactulose. No previous EGD or colonoscopy. S/p cholecystectomy. Says has a stent in his pancreas placed at 2 years ago for "lots of stones after they roto-rootered it out" but "I never went back to get it out." Fixated on having paracentesis, also has questions about hernias (ventral, right inguinal - "I have to hold my intestines in.") D/w nurse - back and forth on Hospice. PMH: PMH: see HPI HTN, HLD, COPD left eye socket, lower cleve, and bilateral leg plates chart also lists CAD w/ stent and testicular cancer - he denies FH: Family History: No pertinent hx Social History: Smoke: No (tells me never smoked) ALCOHOL: other (last drank during Super Bow2021) Drugs: Heroin (in remission) ROS: GEN: Denies fevers, chills, sweats HEENT: Denies blurred vision, sore throat CV: Denies chest pain RESP: +SOA GI: Per HPI : Denies hematuria, dysuria ENDO: +weight loss NEURO: Denies confusion, dizziness MSK: Denies weakness, joint pain/swelling SKIN: Denies jaundice, pruritus Vitals: Vitals: Vital Signs Date Time Temp Pulse Resp B/P (MAP) Pulse Ox O2 Delivery O2 Flow Rate FiO2 11/02/21 08:35 69 136/76 11/02/21 08:34 Room Air 11/02/21 07:00 98.4 22 93 98.4 11/02/21 04:18 2.0 Labs: Labs: Laboratory Tests Test 11/01/21 15:33 11/02/21 05:45 Urine Collection Type Unknown Urine Color Padmini Urine Clarity Clear Urine pH 6.5 (<5.0-8.0) Urine Specific [place] 1.025 (1.000-1.030) Urine Protein 30 mg/dL (NEG-TRACE) Urine Glucose (UA) Negative mg/dL (NEG) Urine Ketones (Stick) Negative mg/dL (NEG) Urine Blood Large (NEG) Urine Nitrite Negative (NEG) Urine Bilirubin Negative (NEG) Urine Urobilinogen Dipstick 1.0 mg/dL (0.2 mg/dL) Urine Leukocyte Esterase Negative (NEG) Urine RBC >40 /HPF (0-2) Urine WBC Occ /HPF (0-4) Urine Bacteria 0 /HPF (0-FEW) Urine Mucus Slight /LPF Prothrombin Time 18.1 SEC (11.7-14.0) Prothromb Time International Ratio 1.5 (0.8-1.1) Sodium Level 139 mmol/L (136-145) Potassium Level 4.6 mmol/L (3.5-5.1) Chloride Level 103 mmol/L (98-107) Carbon Dioxide Level 29 mmol/L (21-32) Anion Gap 7 (6-14) Blood Urea Nitrogen 12 mg/dL (8-26) Creatinine 0.7 mg/dL (0.7-1.3) Estimated GFR (Cockcroft-Gault) 115.4 BUN/Creatinine Ratio 17 (6-20) Glucose Level 128 mg/dL (70-99) Calcium Level 8.2 mg/dL (8.5-10.1) Total Bilirubin 1.8 mg/dL (0.2-1.0) Aspartate Amino Transf (AST/SGOT) 44 U/L (15-37) Alanine Aminotransferase (ALT/SGPT) 32 U/L (16-63) Alkaline Phosphatase 111 U/L (46-116) Total Protein 7.3 g/dL (6.4-8.2) Albumin 2.3 g/dL (3.4-5.0) Albumin/Globulin Ratio 0.5 (1.0-1.7) Allergies: Coded Allergies: gabapentin (Verified Adverse Reaction, Severe, Nausea and Vomiting, 10/31/21) Medications: Current Medications Medications (Trade) Dose Ordered Sig/Griselda Route PRN Reason Start Time Stop Time Status Last Admin Dose Admin Ceftriaxone Sodium (Rocephin) 1 gm Q24H IVP 11/01/21 19:00 11/01/21 17:55 Pantoprazole Sodium (Protonix) 40 mg DAILYAC PO 11/01/21 11:30 11/02/21 06:14 Imaging: Imaging: Thoracentesis 11/01 Impression: Successful ultrasound guided thoracentesis with removal 2.3 liters of fluid. CXR IMPRESSION: 1. Moderate right pleural effusion with right middle and lower lobe compressive atelectasis or collapse. 2. Left basilar atelectasis. PE: GEN: NAD HEENT: Atraumatic, PERRL LUNGS: diminished HEART: RRR ABD: round/large, soft, non-tender, ventral and umb hernias EXTREMITY/SKIN: chronic BLE skin changes, not much edema NEURO/PSYCH: A & O 3 A/P: A/P: COVID Leukopenia, thrombocytopenia, coagulopathy, elevated bili and AST Cirrhosis - h/o alcohol and Hep C Right pleural effusion, small ascites Weight loss CRC screen - none, CT reports mentions rectal wall thickening Diverticulosis S/p cholecystectomy, s/p stenting @ [facility] ~2 years ago, no follow-up - ?not sure if mentioned on CT? Hernias H/o IVDU -- Will ask for paracentesis though only small amount of ascites per CT report - see what IR thinks. Check abd doppler/US re: ascites and r/o PVT. Check AFP, ammonia, viral Hepatitis panel for completeness. Also plans for chest CT. Still drinking. MELD 14. ?has some sort of stent placed by ~2 years ago... JOAQUIM LUIS Nov 02, 2021 10:08
--- NOTE | 2021-11-02 10:26 | PDOC ---
PULMONARY PROGRESS NOTES DATE: 11/02/21 TIME: 10:26 Vitals Vital Signs Date Time Temp Pulse Resp B/P (MAP) Pulse Ox O2 Delivery O2 Flow Rate FiO2 11/02/21 08:35 69 136/76 11/02/21 08:34 Room Air 11/02/21 07:00 98.4 22 93 98.4 11/02/21 04:18 2.0 Labs Laboratory Tests Test 10/31/21 23:20 11/01/21 07:05 11/01/21 09:17 11/01/21 15:33 D-Dimer (Jami) 4.96 ug/mlFEU (0.00-0.50) White Blood Count 2.0 x10^3/uL (4.0-11.0) Red Blood Count 4.15 x10^6/uL (4.30-5.70) Hemoglobin 13.3 g/dL (13.0-17.5) Hematocrit 40.0 % (39.0-53.0) Mean Corpuscular Volume 96 fL (79-100) Mean Corpuscular Hemoglobin 32 pg (25-35) Mean Corpuscular Hemoglobin Concent 33 g/dL (31-37) Red Cell Distribution Width 16.4 % (11.5-14.5) Platelet Count 46 x10^3/uL (140-400) Neutrophils (%) (Auto) 71 % (31-73) Lymphocytes (%) (Auto) 25 % (24-48) Monocytes (%) (Auto) 3 % (0-9) Eosinophils (%) (Auto) 0 % (0-3) Basophils (%) (Auto) 1 % (0-3) Neutrophils # (Auto) 1.4 x10^3/uL (1.8-7.7) Lymphocytes # (Auto) 0.5 x10^3/uL (1.0-4.8) Monocytes # (Auto) 0.1 x10^3/uL (0.0-1.1) Eosinophils # (Auto) 0.0 x10^3/uL (0.0-0.7) Basophils # (Auto) 0.0 x10^3/uL (0.0-0.2) Prothrombin Time 17.7 SEC (11.7-14.0) Prothromb Time International Ratio 1.5 (0.8-1.1) Activated Partial Thromboplast Time 36 SEC (24-38) Sodium Level 139 mmol/L (136-145) Potassium Level 4.1 mmol/L (3.5-5.1) Chloride Level 102 mmol/L (98-107) Carbon Dioxide Level 25 mmol/L (21-32) Anion Gap 12 (6-14) Blood Urea Nitrogen 10 mg/dL (8-26) Creatinine 0.7 mg/dL (0.7-1.3) Estimated GFR (Cockcroft-Gault) 115.4 BUN/Creatinine Ratio 14 (6-20) Glucose Level 156 mg/dL (70-99) Calcium Level 8.2 mg/dL (8.5-10.1) Total Bilirubin 2.1 mg/dL (0.2-1.0) Aspartate Amino Transf (AST/SGOT) 60 U/L (15-37) Alanine Aminotransferase (ALT/SGPT) 33 U/L (16-63) Alkaline Phosphatase 130 U/L (46-116) Total Protein 8.6 g/dL (6.4-8.2) Albumin 2.6 g/dL (3.4-5.0) Albumin/Globulin Ratio 0.4 (1.0-1.7) Body Fluid Source Pleural Body Fluid Color Yellow Body Fluid Clarity Clear Body Fluid pH 7.51 Body Fluid Nucleated Cells 209 /cmm (Not Established) Body Fluid Mononuclear WBCs (%) 35 % Body Fluid Polymorphonuclear Cells 20 % Body Fluid Total RBCs Counted 155 /cmm (Not Established) Body Fluid Other Cells (%) 45 % Urine Collection Type Unknown Urine Color Padmini Urine Clarity Clear Urine pH 6.5 (<5.0-8.0) Urine Specific [place] 1.025 (1.000-1.030) Urine Protein 30 mg/dL (NEG-TRACE) Urine Glucose (UA) Negative mg/dL (NEG) Urine Ketones (Stick) Negative mg/dL (NEG) Urine Blood Large (NEG) Urine Nitrite Negative (NEG) Urine Bilirubin Negative (NEG) Urine Urobilinogen Dipstick 1.0 mg/dL (0.2 mg/dL) Urine Leukocyte Esterase Negative (NEG) Urine RBC >40 /HPF (0-2) Urine WBC Occ /HPF (0-4) Urine Bacteria 0 /HPF (0-FEW) Urine Mucus Slight /LPF Test 11/02/21 05:45 Prothrombin Time 18.1 SEC (11.7-14.0) Prothromb Time International Ratio 1.5 (0.8-1.1) Sodium Level 139 mmol/L (136-145) Potassium Level 4.6 mmol/L (3.5-5.1) Chloride Level 103 mmol/L (98-107) Carbon Dioxide Level 29 mmol/L (21-32) Anion Gap 7 (6-14) Blood Urea Nitrogen 12 mg/dL (8-26) Creatinine 0.7 mg/dL (0.7-1.3) Estimated GFR (Cockcroft-Gault) 115.4 BUN/Creatinine Ratio 17 (6-20) Glucose Level 128 mg/dL (70-99) Calcium Level 8.2 mg/dL (8.5-10.1) Total Bilirubin 1.8 mg/dL (0.2-1.0) Aspartate Amino Transf (AST/SGOT) 44 U/L (15-37) Alanine Aminotransferase (ALT/SGPT) 32 U/L (16-63) Alkaline Phosphatase 111 U/L (46-116) Total Protein 7.3 g/dL (6.4-8.2) Albumin 2.3 g/dL (3.4-5.0) Albumin/Globulin Ratio 0.5 (1.0-1.7) Laboratory Tests Test 11/01/21 15:33 11/02/21 05:45 Urine Collection Type Unknown Urine Color Padmini Urine Clarity Clear Urine pH 6.5 (<5.0-8.0) Urine Specific [place] 1.025 (1.000-1.030) Urine Protein 30 mg/dL (NEG-TRACE) Urine Glucose (UA) Negative mg/dL (NEG) Urine Ketones (Stick) Negative mg/dL (NEG) Urine Blood Large (NEG) Urine Nitrite Negative (NEG) Urine Bilirubin Negative (NEG) Urine Urobilinogen Dipstick 1.0 mg/dL (0.2 mg/dL) Urine Leukocyte Esterase Negative (NEG) Urine RBC >40 /HPF (0-2) Urine WBC Occ /HPF (0-4) Urine Bacteria 0 /HPF (0-FEW) Urine Mucus Slight /LPF Prothrombin Time 18.1 SEC (11.7-14.0) Prothromb Time International Ratio 1.5 (0.8-1.1) Sodium Level 139 mmol/L (136-145) Potassium Level 4.6 mmol/L (3.5-5.1) Chloride Level 103 mmol/L (98-107) Carbon Dioxide Level 29 mmol/L (21-32) Anion Gap 7 (6-14) Blood Urea Nitrogen 12 mg/dL (8-26) Creatinine 0.7 mg/dL (0.7-1.3) Estimated GFR (Cockcroft-Gault) 115.4 BUN/Creatinine Ratio 17 (6-20) Glucose Level 128 mg/dL (70-99) Calcium Level 8.2 mg/dL (8.5-10.1) Total Bilirubin 1.8 mg/dL (0.2-1.0) Aspartate Amino Transf (AST/SGOT) 44 U/L (15-37) Alanine Aminotransferase (ALT/SGPT) 32 U/L (16-63) Alkaline Phosphatase 111 U/L (46-116) Total Protein 7.3 g/dL (6.4-8.2) Albumin 2.3 g/dL (3.4-5.0) Albumin/Globulin Ratio 0.5 (1.0-1.7) Medications Active Scripts Medications Dose Route/Sig Max Daily Dose Days Date Category Men's 50 Plus Multivitamin Tab (Multivit-Min/Folic/Vit K/Lycop) 1 Each Tablet 1 Each PO DAILY 10/31/21 Reported Pantoprazole Sodium (Pantoprazole Sodium) 40 Mg Tablet.dr 40 Mg PO DAILYAC 10/31/21 Reported Inderal Xl (Propranolol Hcl) 120 Mg Cap.er.24h 120 Mg PO DAILY 05/09/21 Reported Ondansetron Odt (Ondansetron) 4 Mg Tab.rapdis 8 Mg PO PRN TID PRN 05/09/21 Reported Lactulose 20 Gm/30 Ml Solution 20 Gm PO TID 05/09/21 Reported Fluticasone Propionate Nasal [place] (Fluticasone Propionate) 16 Gm [place].susp 2 [place] NS PRN DAILY PRN 05/09/21 Reported Amlodipine Besylate 5 Mg Tablet 5 Mg PO DAILY 05/09/21 Reported Impression . Consult dictated Thoracentesis performed earlier today Follow-up on results Continue antibiotics Suspect pleural fluid related to cirrhosis JORDYN BAI MD Nov 02, 2021 10:26
[2021-11-02 11:00] VITALS: BP 138/78
--- NOTE | 2021-11-02 11:03 | RAD ---
PQRS Compliance Statement: One or more of the following individualized dose reduction techniques were utilized for this examinat ion: 1. Automated exposure control 2. Adjustment of the mA and/or kV according to patient size 3. Use of iterative reconstruction technique CT THORAX WO Clinical Indication: Reason: Pleural effusion with lung collapse COVID + / Spl. Instructions: / H istory: Comparison: AP chest, prior day. TECHNIQUE: Helical CT imaging of the chest is performed without IV contrast. Findings: Thyroid is symmetric. No axillary or mediastinal adenopathy. The great vessels are normal caliber. Ca rdiac size normal, no pericardial effusion. There is a large right pleural effusion. The central airways are patent. There is collapse of the rig ht lower lobe and the right middle lobe. The left lung is clear. No pneumothorax. Hepatic cirrhosis. Incompletely imaged there is likely splenomegaly. There is lateral perihepatic asc ites. Cholecystectomy. There are old bilateral rib fractures. Right ninth rib fracture is nonunited. There is mild old compr ession fracture at the superior endplate of T7. There is minimal loss of height. IMPRESSION: 1. Large right pleural effusion. 2. Collapse of the right middle and lower lobes. 3. Hepatic cirrhosis. Probable splenomegaly. Lateral perihepatic ascites. Electronically signed by: Damon Woods MD (11/02/2021 11:01 AM) [facility]
--- NOTE | 2021-11-02 11:31 | RAD ---
EXAM: Pepper scale and color Doppler abdomen sonogram. HISTORY: Cirrhosis. Portal vein assessment. Covid 19. TECHNIQUE: Pepper scale and color Doppler sonographic imaging of the abdomen with spectral waveform thi lysis was performed. COMPARISON: CT dated 10/31/2021.. FINDINGS: The exam is limited due to patient body habitus. There is a small amount of ascites. The la rgest ascites pocket is seen within the right upper quadrant measuring 4.6 cm in depth. The portal ve ins are patent with normal directional flow. IMPRESSION: 1. Small abdominal ascites and peripherally right upper quadrant distribution. 2. Patent portal veins. 3. Note is made that the abdominal visceral structures are not formally assessed on this exam. Please refer to the recent CT report for additional abdominal findings. Electronically signed by: Chata Motta MD (11/02/2021 11:28 AM) [id number]
--- NOTE | 2021-11-02 11:49 | PDOC ---
Provider Note Date of Service: DATE: 11/02/21 TIME: 11:46 Provider Note IR NOTE US showed small amount of ascites. Will hold off on para for now. Justifications for Admission Other Justification NIEVES COSTELLO MD Nov 02, 2021 11:49
[2021-11-02] MEDS ORDERED: fentaNYL 25MCG/HR PATCH 1 PATCH PATCH.TD72 TD SCH (12:45)
--- NOTE | 2021-11-02 13:11 | PDOC ---
[employer] PROGRESS NOTE Date of Service DOS: DATE: 11/02/21 TIME: 12:41 Chief Complaint Chief Complaint A/P: Abdominal pain - likely due to abdominal distention and left inguinal hernia Ascites due to alcoholic cirrhosis - minimal ascites Right Pleural effusion - consulted IR for thoracentesis 2.5L. Cytology, fluid analysis Hepatic cirrhosis- with associated portal hypertension resulting in splenomegaly. MELD 14 currently COVID 19 - not vaccinated, not hypoxic. Will give supportive care, monitor, high risk for mortality Distal colonic and rectal wall thickening - with pain could be colitis, no diarrhea, and he is a poor historian Bladder wall thickening - will check UA given his suprapubic pain Colonic diverticulosis. Leukopenia - likely cirrhosis and COVID 19 related Thrombocytopenia - likely cirrhosis related, will hold heparin for procedure and for platelets < 50 Unintentional weight loss -may be developing HCC. His liver disease is progressed. Hospice is appropriate. Per family wishes will refer to a different hospice organization. FEN - regular diet PPX - SCDs CODE - DNR/DNI Dispo - inpatient for above. At least 6% 3-month mortality. History of Present Illness History of Present Illness Mr Randal Salomon" is a 61-year-old male w/ PMHx GERD, depression, COPD, HTN, alcohol use disorder and heroin use disorder in sustained remission, and end- stage liver disease who presents to ED at [facility] in [place] 10/31/21 with lower abdominal pain progressive shortness of breath. Patient states he has had abdominal pain for the past 3 or 4 months but has amplified over the last couple of days and it is now severe, patient also has increased work of breathing and worsening confusion. Patient does have a past medical history of liver failure, he states he has not followed up with anybody recently he does see Dr. Whitley and was supposed to see them last but missed his appointment because he did not have a ride. Patient states he has had a paracentesis in the past but has not had one recently. He states 5 [address]. Guillermo at [facility] and was diagnosed with cirrhosis and he stopped drinking at that time. He has gotten progressively weaker over the last year and lost over 100 pounds in the last 4 months according to him and his sister who conferences sent over the phone to supplement history due to his confusion. His sister notes that he has been evaluated by hospice and they were worried that "the nurses were just waiting for him to at home" and they have asked to be evaluated by another hospice company while inpatient. WBC 3, Hb 13, platelets 55, NA 138, K3.7, BUN 6, CR 0.7, glucose 126, calcium 7.9, bilirubin 1.7, AST 69, ALT 34, alkaline phosphatase 134, ammonia 26, NT proBNP 38, high-sensitivity troponin is 8, albumin is 2.5, rapid COVID-19 positive EKG sinus tachycardia rate 117 bpm T flattening in anterior septal leads no ST elevations QTC 468. CT abdomen pelvis shows large right pleural effusion with small ascites and hepatic cirrhosis with portal hypertension as well as splenomegaly. Also with distant: Rectal wall thickening bladder wall thickening and diverticulosis. Due to the severity of his symptoms and lack of gastroenterology or interventional radiology, pulmonology was called for transfer to [facility] for further assessment and treatment. 11/02: Status post 2.3 L right-sided thoracentesis. He is feeling improved off O2 still complaining of some right-sided groin pain he is asking if he can increase his pain medication as he has been on high-dose opioids previously has asked to enter hospice with [facility] and I am initiating fentanyl patch today. Vitals/I&O Vitals/I&O: Vital Signs Date Time Temp Pulse Resp B/P (MAP) Pulse Ox O2 Delivery O2 Flow Rate FiO2 11/02/21 11:14 Room Air 11/02/21 11:00 98.4 64 22 138/78 (98) 93 98.4 11/02/21 04:18 2.0 I & O 11/01/21 11/01/21 11/02/21 15:00 23:00 07:00 Intake Total 260 ml 660 ml 300 ml Output Total 2300 ml 830 ml Balance -2040 ml 660 ml -530 ml Physical Exam General: Alert, Cooperative, moderate distress Abdomen: Normal bowel sounds, Soft, No hepatosplenomegaly, No masses, Other (Distended, suprapubic tenderness) Extremities: No clubbing, No cyanosis, No edema, Normal pulses, No tenderness/swelling Skin: Other (xerosis bilateral legs) Labs Labs: Laboratory Tests Test 11/01/21 15:33 11/02/21 05:45 11/02/21 11:18 Urine Collection Type Unknown Urine Color Padmini Urine Clarity Clear Urine pH 6.5 (<5.0-8.0) Urine Specific [place] 1.025 (1.000-1.030) Urine Protein 30 mg/dL (NEG-TRACE) Urine Glucose (UA) Negative mg/dL (NEG) Urine Ketones (Stick) Negative mg/dL (NEG) Urine Blood Large (NEG) Urine Nitrite Negative (NEG) Urine Bilirubin Negative (NEG) Urine Urobilinogen Dipstick 1.0 mg/dL (0.2 mg/dL) Urine Leukocyte Esterase Negative (NEG) Urine RBC >40 /HPF (0-2) Urine WBC Occ /HPF (0-4) Urine Bacteria 0 /HPF (0-FEW) Urine Mucus Slight /LPF Prothrombin Time 18.1 SEC (11.7-14.0) Prothromb Time International Ratio 1.5 (0.8-1.1) Sodium Level 139 mmol/L (136-145) Potassium Level 4.6 mmol/L (3.5-5.1) Chloride Level 103 mmol/L (98-107) Carbon Dioxide Level 29 mmol/L (21-32) Anion Gap 7 (6-14) Blood Urea Nitrogen 12 mg/dL (8-26) Creatinine 0.7 mg/dL (0.7-1.3) Estimated GFR (Cockcroft-Gault) 115.4 BUN/Creatinine Ratio 17 (6-20) Glucose Level 128 mg/dL (70-99) Calcium Level 8.2 mg/dL (8.5-10.1) Total Bilirubin 1.8 mg/dL (0.2-1.0) Aspartate Amino Transf (AST/SGOT) 44 U/L (15-37) Alanine Aminotransferase (ALT/SGPT) 32 U/L (16-63) Alkaline Phosphatase 111 U/L (46-116) Total Protein 7.3 g/dL (6.4-8.2) Albumin 2.3 g/dL (3.4-5.0) Albumin/Globulin Ratio 0.5 (1.0-1.7) Ammonia 24 mcmol/L (11-34) Comment Review of Relevant I have reviewed the following items felicia (where applicable) has been applied. Medications: Current Medications Medications (Trade) Dose Ordered Sig/Griselda Route PRN Reason Start Time Stop Time Status Last Admin Dose Admin Ceftriaxone Sodium (Rocephin) 1 gm Q24H IVP 11/01/21 19:00 11/01/21 17:55 Justifications for Admission Other Justification AUTUMN ZAVALA MD Nov 02, 2021 13:11
[2021-11-02] MEDS ORDERED: SPIR25TA PO (13:17)
[2021-11-02] MEDS ORDERED: FENT1PAT15 TD (13:17)
[2021-11-02] MEDS ORDERED: FURO40TA4 PO (13:17)
[2021-11-02] MEDS ORDERED: MOR20SL SL (13:20)
--- NOTE | 2021-11-02 13:24 | SNU/HH DC ---
DISCHARGE ORDERS DISCHARGE INFORMATION: DISCHARGE DATE: Nov 02, 2021 FINAL DIAGNOSIS End stage liver disease CONDITION ON DISCHARGE: Guarded CODE STATUS: Code Status: DNR/DNI HOSPICE: HOSPICE: Yes HOSPICE EVAL & TREAT: Yes POST DISCHARGE ORDERS: ACTIVITY ORDERS: No restrictions WEIGHT BEARING STATUS: No restrictions DIET AFTER DISCHARGE: Regular CHECKS AFTER DISCHARGE: CHECKS AFTER DISCHARGE: Check blood press - daily, Check your Temp as needed FOLLOW-UP: Additional Instructions: Interventional Radiology prn for thoracentesis/paracentesis TREATMENT/EQUIPMENT ORDERS: RESPIRATORY EQUIPMENT NEEDED: Oxygen DISCHARGE MEDICATIONS: Home Meds Active Scripts Morphine Sulfate Conc (ROXANOL CONC ) 20 Mg/1 Ml Solution, 5-10 MG SL PRN Q4HRS PRN for PAIN CONTROL / AIR HUNGER for 30 Days, #1 BOTTLE 0 Refills Prov:AUTUMN ZAVALA MD 11/02/21 Furosemide (FUROSEMIDE) 40 Mg Tablet, 1 TAB PO DAILY for Cirrhosis for 30 Days, #30 TAB 3 Refills Prov:AUTUMN ZAVALA MD 11/02/21 Spironolactone (ALDACTONE) 25 Mg Tablet, 100 MG PO DAILY for Cirrhosis for 30 Days, #120 TAB Prov:AUTUMN ZAVALA MD 11/02/21 Fentanyl (FENTANYL 25mcg/hr) 1 Each Patch.td72, 1 PATCH TD Q3DAYS for Chronic Pain/Hospice for 30 Days, #30 PATCH Prov:AUTUMN ZAVALA MD 11/02/21 Reported Medications Multivit-Min/Folic/Vit K/Lycop (Men's 50 Plus Multivitamin Tab) 1 Each Tablet, 1 EACH PO DAILY for supp, TAB 10/31/21 Pantoprazole Sodium (PANTOPRAZOLE SODIUM ) 40 Mg Tablet.dr, 40 MG PO DAILYAC for GERD, TAB 10/31/21 Propranolol Hcl (INDERAL XL) 120 Mg Cap.er.24h, 120 MG PO DAILY for HIGH BLOOD PRESSURE , CAP.SR 05/09/21 Ondansetron (ONDANSETRON ODT) 4 Mg Tab.rapdis, 8 MG PO PRN TID PRN for NAUSEA/VOMITING, TAB 05/09/21 Lactulose (LACTULOSE) 20 Gm/30 Ml Solution, 20 GM PO TID for LIVER DISEASE, MISC 05/09/21 Fluticasone Propionate (FLUTICASONE PROPIONATE NASAL SPRAY) 16 Gm [place].susp, 2 SPRAY NS PRN DAILY PRN for ALLERGIES, EACH 05/09/21 Amlodipine Besylate (AMLODIPINE BESYLATE) 5 Mg Tablet, 5 MG PO DAILY for HIGH BLOOD PRESSURE , TAB 05/09/21 AUTUMN ZAVALA MD Nov 02, 2021 13:24
[2021-11-02] MEDS ORDERED: SPIRONOLACTONE 25 MG TABLET PO SCH (14:00)
--- NOTE | 2021-11-02 14:14 | PDOC3 ---
Discharge Summary Visit Information Date of Admission: Oct 31, 2021 Date of Discharge: Nov 02, 2021 Admitting Diagnosis: Right pleural effusion, cirrhosis Final Diagnosis Right pleural effusion, cirrhosis, COVID 19 Brief Hospital Course Allergies Allergies Coded Allergies Type Severity Reaction Last Updated Verified gabapentin Adverse Reaction Severe Nausea and Vomiting 10/31/21 Yes Vital Signs Vital Signs Date Time Temp Pulse Resp B/P (MAP) Pulse Ox O2 Delivery O2 Flow Rate FiO2 11/02/21 13:40 Room Air 11/02/21 11:00 98.4 64 22 138/78 (98) 93 98.4 11/02/21 04:18 2.0 Lab Results Laboratory Tests Test 10/31/21 23:20 11/01/21 07:05 11/01/21 09:17 11/01/21 15:33 D-Dimer (Jami) 4.96 ug/mlFEU (0.00-0.50) White Blood Count 2.0 x10^3/uL (4.0-11.0) Red Blood Count 4.15 x10^6/uL (4.30-5.70) Hemoglobin 13.3 g/dL (13.0-17.5) Hematocrit 40.0 % (39.0-53.0) Mean Corpuscular Volume 96 fL (79-100) Mean Corpuscular Hemoglobin 32 pg (25-35) Mean Corpuscular Hemoglobin Concent 33 g/dL (31-37) Red Cell Distribution Width 16.4 % (11.5-14.5) Platelet Count 46 x10^3/uL (140-400) Neutrophils (%) (Auto) 71 % (31-73) Lymphocytes (%) (Auto) 25 % (24-48) Monocytes (%) (Auto) 3 % (0-9) Eosinophils (%) (Auto) 0 % (0-3) Basophils (%) (Auto) 1 % (0-3) Neutrophils # (Auto) 1.4 x10^3/uL (1.8-7.7) Lymphocytes # (Auto) 0.5 x10^3/uL (1.0-4.8) Monocytes # (Auto) 0.1 x10^3/uL (0.0-1.1) Eosinophils # (Auto) 0.0 x10^3/uL (0.0-0.7) Basophils # (Auto) 0.0 x10^3/uL (0.0-0.2) Prothrombin Time 17.7 SEC (11.7-14.0) Prothromb Time International Ratio 1.5 (0.8-1.1) Activated Partial Thromboplast Time 36 SEC (24-38) Sodium Level 139 mmol/L (136-145) Potassium Level 4.1 mmol/L (3.5-5.1) Chloride Level 102 mmol/L (98-107) Carbon Dioxide Level 25 mmol/L (21-32) Anion Gap 12 (6-14) Blood Urea Nitrogen 10 mg/dL (8-26) Creatinine 0.7 mg/dL (0.7-1.3) Estimated GFR (Cockcroft-Gault) 115.4 BUN/Creatinine Ratio 14 (6-20) Glucose Level 156 mg/dL (70-99) Calcium Level 8.2 mg/dL (8.5-10.1) Total Bilirubin 2.1 mg/dL (0.2-1.0) Aspartate Amino Transf (AST/SGOT) 60 U/L (15-37) Alanine Aminotransferase (ALT/SGPT) 33 U/L (16-63) Alkaline Phosphatase 130 U/L (46-116) Total Protein 8.6 g/dL (6.4-8.2) Albumin 2.6 g/dL (3.4-5.0) Albumin/Globulin Ratio 0.4 (1.0-1.7) Body Fluid Source Pleural Body Fluid Color Yellow Body Fluid Clarity Clear Body Fluid pH 7.51 Body Fluid Nucleated Cells 209 /cmm (Not Established) Body Fluid Mononuclear WBCs (%) 35 % Body Fluid Polymorphonuclear Cells 20 % Body Fluid Total RBCs Counted 155 /cmm (Not Established) Body Fluid Other Cells (%) 45 % Urine Collection Type Unknown Urine Color Padmini Urine Clarity Clear Urine pH 6.5 (<5.0-8.0) Urine Specific [place] 1.025 (1.000-1.030) Urine Protein 30 mg/dL (NEG-TRACE) Urine Glucose (UA) Negative mg/dL (NEG) Urine Ketones (Stick) Negative mg/dL (NEG) Urine Blood Large (NEG) Urine Nitrite Negative (NEG) Urine Bilirubin Negative (NEG) Urine Urobilinogen Dipstick 1.0 mg/dL (0.2 mg/dL) Urine Leukocyte Esterase Negative (NEG) Urine RBC >40 /HPF (0-2) Urine WBC Occ /HPF (0-4) Urine Bacteria 0 /HPF (0-FEW) Urine Mucus Slight /LPF Test 11/02/21 05:45 11/02/21 11:18 Prothrombin Time 18.1 SEC (11.7-14.0) Prothromb Time International Ratio 1.5 (0.8-1.1) Sodium Level 139 mmol/L (136-145) Potassium Level 4.6 mmol/L (3.5-5.1) Chloride Level 103 mmol/L (98-107) Carbon Dioxide Level 29 mmol/L (21-32) Anion Gap 7 (6-14) Blood Urea Nitrogen 12 mg/dL (8-26) Creatinine 0.7 mg/dL (0.7-1.3) Estimated GFR (Cockcroft-Gault) 115.4 BUN/Creatinine Ratio 17 (6-20) Glucose Level 128 mg/dL (70-99) Calcium Level 8.2 mg/dL (8.5-10.1) Total Bilirubin 1.8 mg/dL (0.2-1.0) Aspartate Amino Transf (AST/SGOT) 44 U/L (15-37) Alanine Aminotransferase (ALT/SGPT) 32 U/L (16-63) Alkaline Phosphatase 111 U/L (46-116) Total Protein 7.3 g/dL (6.4-8.2) Albumin 2.3 g/dL (3.4-5.0) Albumin/Globulin Ratio 0.5 (1.0-1.7) Hepatitis A IgM Antibody Nonreactive (Nonreactive) Hepatitis B Surface Antigen Nonreactive (Nonreactive) Hepatitis B Core IgM Antibody Nonreactive (Nonreactive) Hepatitis C IgG Antibody Reactive (Nonreactive) Ammonia 24 mcmol/L (11-34) Laboratory Tests Test 11/01/21 15:33 11/02/21 05:45 11/02/21 11:18 Urine Collection Type Unknown Urine Color Padmini Urine Clarity Clear Urine pH 6.5 (<5.0-8.0) Urine Specific [place] 1.025 (1.000-1.030) Urine Protein 30 mg/dL (NEG-TRACE) Urine Glucose (UA) Negative mg/dL (NEG) Urine Ketones (Stick) Negative mg/dL (NEG) Urine Blood Large (NEG) Urine Nitrite Negative (NEG) Urine Bilirubin Negative (NEG) Urine Urobilinogen Dipstick 1.0 mg/dL (0.2 mg/dL) Urine Leukocyte Esterase Negative (NEG) Urine RBC >40 /HPF (0-2) Urine WBC Occ /HPF (0-4) Urine Bacteria 0 /HPF (0-FEW) Urine Mucus Slight /LPF Prothrombin Time 18.1 SEC (11.7-14.0) Prothromb Time International Ratio 1.5 (0.8-1.1) Sodium Level 139 mmol/L (136-145) Potassium Level 4.6 mmol/L (3.5-5.1) Chloride Level 103 mmol/L (98-107) Carbon Dioxide Level 29 mmol/L (21-32) Anion Gap 7 (6-14) Blood Urea Nitrogen 12 mg/dL (8-26) Creatinine 0.7 mg/dL (0.7-1.3) Estimated GFR (Cockcroft-Gault) 115.4 BUN/Creatinine Ratio 17 (6-20) Glucose Level 128 mg/dL (70-99) Calcium Level 8.2 mg/dL (8.5-10.1) Total Bilirubin 1.8 mg/dL (0.2-1.0) Aspartate Amino Transf (AST/SGOT) 44 U/L (15-37) Alanine Aminotransferase (ALT/SGPT) 32 U/L (16-63) Alkaline Phosphatase 111 U/L (46-116) Total Protein 7.3 g/dL (6.4-8.2) Albumin 2.3 g/dL (3.4-5.0) Albumin/Globulin Ratio 0.5 (1.0-1.7) Hepatitis A IgM Antibody Nonreactive (Nonreactive) Hepatitis B Surface Antigen Nonreactive (Nonreactive) Hepatitis B Core IgM Antibody Nonreactive (Nonreactive) Hepatitis C IgG Antibody Reactive (Nonreactive) Ammonia 24 mcmol/L (11-34) Brief Hospital Course Mr Randal Salomon" is a 61-year-old male w/ PMHx GERD, depression, COPD, HTN, alcohol use disorder and heroin use disorder in sustained remission, and end- stage liver disease who presents to ED at [facility] 10/31/21 with lower abdominal pain progressive shortness of breath. Patient states he has had abdominal pain for the past 3 or 4 months but has amplified over the last couple of days and it is now severe, patient also has increased work of breathing and worsening confusion. Patient does have a past medical history of liver failure, he states he has not followed up with anybody recently he does see Dr. Whitley and was supposed to see them last but missed his appointment because he did not have a ride. Patient states he has had a paracentesis in the past but has not had one recently. He states 5 years ago he saw Dr. Guillermo at [facility] and was diagnosed with cirrhosis and he stopped drinking at that time. He has gotten progressively weaker over the last year and lost over 100 pounds in the last 4 months according to him and his sister who conferences sent over the phone to supplement history due to his confusion. His sister notes that he has been evaluated by hospice and they were worried that "the nurses were just waiting for him to at home" and they have asked to be evaluated by another hospice company while inpatient. WBC 3, Hb 13, platelets 55, NA 138, K3.7, BUN 6, CR 0.7, glucose 126, calcium 7.9, bilirubin 1.7, AST 69, ALT 34, alkaline phosphatase 134, ammonia 26, NT proBNP 38, high-sensitivity troponin is 8, albumin is 2.5, rapid COVID-19 positive EKG sinus tachycardia rate 117 bpm T flattening in anterior septal leads no ST elevations QTC 468. CT abdomen pelvis shows large right pleural effusion with small ascites and hepatic cirrhosis with portal hypertension as well as splenomegaly. Also with distant: Rectal wall thickening bladder wall thickening and diverticulosis. Due to the severity of his symptoms and lack of gastroenterology or interventional radiology, pulmonology was called for transfer to [facility] for further assessment and treatment. 11/02: Status post 2.3 L right-sided thoracentesis. He is feeling improved off O2 still complaining of some right-sided groin pain he is asking if he can increase his pain medication as he has been on high-dose opioids previously has asked to enter hospice with [facility] and I am initiating fentanyl patch today. Consults: GI, pulmononology, IR Problem list: Abdominal pain - likely due to abdominal distention and left inguinal hernia Ascites due to alcoholic cirrhosis - minimal ascites Right Pleural effusion - consulted IR for thoracentesis 2.5L. Cytology, fluid analysis Hepatic cirrhosis- with associated portal hypertension resulting in splenomegaly. MELD 14 currently COVID 19 - not vaccinated, not hypoxic. Will give supportive care, monitor, high risk for mortality Distal colonic and rectal wall thickening - with pain could be colitis, no diarrhea, and he is a poor historian Bladder wall thickening - UA with some hematuria, he does not want further investigation Colonic diverticulosis. Leukopenia - likely cirrhosis and COVID 19 related Thrombocytopenia - likely cirrhosis related, will hold heparin for procedure and for platelets < 50 Unintentional weight loss -may be developing HCC. His liver disease is progressed. Hospice is appropriate. Per family wishes will refer to a different hospice organization. Opioid use disorder in remission - was a prior heroin user, hep C antibody positive. On opioids now for hospice care FEN - regular diet CODE - DNR/DNI Dispo - Home hospice for end-stage liver disease. At least 6% 3-month mortality. Greater than 30 minutes spent on d/c home with home hospice Discharge Information Condition at Discharge: Improved Follow Up: Weeks (1) Disposition/Orders: D/C to Home w/ Hospice Scheduled Amlodipine Besylate (Amlodipine Besylate) 5 Mg Tablet, 5 MG PO DAILY for HIGH BLOOD PRESSURE , (Reported) Entered as Reported by: URSZULA AWAN on 05/09/211426 Last Action: Continued on 11/01/21911 by AUTUMN ZAVALA MD Fentanyl (FENTANYL 25mcg/hr) 1 Each Patch.td72, 1 PATCH TD Q3DAYS for Chronic Pain/Hospice for 30 Days, #30 Prescribed by: AUTUMN ZAVALA MD on 11/02/21 1318 Furosemide (Furosemide) 40 Mg Tablet, 1 TAB PO DAILY for Cirrhosis for 30 Days, #30 Ref 3 Prescribed by: AUTUMN ZAVALA MD on 11/02/21 1317 Lactulose (Lactulose) 20 Gm/30 Ml Solution, 20 GM PO TID for LIVER DISEASE, (Reported) Entered as Reported by: URSZULA AWAN on 05/09/211426 Last Action: Continued on 11/01/21911 by AUTUMN ZAVALA MD Multivit-Min/Folic/Vit K/Lycop (Men's 50 Plus Multivitamin Tab) 1 Each Tablet, 1 EACH PO DAILY for supp, (Reported) Entered as Reported by: SHELBY HUA on 10/31/212340 Last Action: Converted on 11/01/21912 by AUTUMN ZAVALA MD Pantoprazole Sodium (Pantoprazole Sodium ) 40 Mg Tablet.dr, 40 MG PO DAILYAC for GERD, (Reported) Entered as Reported by: SHELBY HUA on 10/31/212340 Last Action: Continued on 11/01/21911 by AUTUMN ZAVALA MD Propranolol Hcl (Inderal Xl) 120 Mg Cap.er.24h, 120 MG PO DAILY for HIGH BLOOD PRESSURE , (Reported) Entered as Reported by: URSZULA AWAN on 05/09/211426 Last Action: Converted on 11/01/21912 by AUTUMN ZAVALA MD Spironolactone (Aldactone) 25 Mg Tablet, 100 MG PO DAILY for Cirrhosis for 30 Days, #120 Prescribed by: AUTUMN ZAVALA MD on 11/02/21 1317 Scheduled PRN Fluticasone Propionate (Fluticasone Propionate Nasal [place]) 16 Gm [place].susp, 2 SPRAY NS PRN DAILY PRN for ALLERGIES, (Reported) Entered as Reported by: URSZULA AWAN on 05/09/211426 Last Action: Continued on 11/01/21911 by AUTUMN ZAVALA MD Morphine Sulfate Conc (Roxanol Conc ) 20 Mg/1 Ml Solution, 5-10 MG SL PRN Q4HRS PRN for PAIN CONTROL / AIR HUNGER for 30 Days, #1 Ref 0 Prescribed by: AUTUMN ZAVALA MD on 11/02/21 1320 Ondansetron (Ondansetron Odt) 4 Mg Tab.rapdis, 8 MG PO PRN TID PRN for NAUSEA/VOMITING, (Reported) Entered as Reported by: URSZULA AWAN on 05/09/211426 Last Action: Continued on 11/01/21911 by AUTUMN ZAVALA MD Justicifation of Admission Dx: Justifications for Admission: Justification of Admission Dx: Yes AUTUMN ZAVALA MD Nov 02, 2021 14:14
--- NOTE | 2021-11-02 16:26 | NUR ---
SW following. Discussed with RN, pt from home with , room air, GI soft. [facility] met with pt and pt is agreeable to services. Pt wanting to go home today. Hospice eval and treat orders faxed to [facility]. Pt discharging home in a cab. COVID-19 positive. [facility] is in communication with pt's .
--- NOTE | 2021-11-02 16:41 | NUR ---
Discharge Note: PT DISCHARGED HOME WITH [facility]. PT LEFT FACILITY VIA [facility]TRIP[facility] WITH CAB PASS. PT STABLE AND ALERT UPON DISCHARGE. PT PIV REMOVED FROM L AC WITHOUT COMPLICATIONS, BANDAGE APPLIED. PT HAD FENTANYL PATCH TO R SHOULDER IN PLACE PRIOR TO DISCHARGE. PT EDUCATED ABOUT DISCHARGE INSTRUCTIONS, DISCHARGE MEDICATIONS, AND FOLLOW-UP CARE INSTRUCTIONS, NO CONCERNS VOICED AT THIS TIME. PT LEFT WITH ALL PERSONAL BELONGINGS. MARA VELÁZQUEZ KSENIA Discharge instructions and discharge home medications reviewed with Patient and a copy given. All questions have been answered and understanding verbalized.
[2021-11-05 15:15] LABS: HCV ULTRA QUANT PCR 480 IU/mL (.)
--- NOTE | 2021-11-05 19:06 | PATHOLOGY ---
Note [facility] Accession Number: [id number] TESTS RESULT FLAG UNITS REF RANGE LAB Clinician Provided Cytology Information No. of containers..01 Other (Miscellaneous) Source: RT PLEURAL FLUID DIAGNOSIS: RT PLEURAL FLUID NEGATIVE FOR MALIGNANT CELLS. REACTIVE MESOTHELIAL CELLS ARE PRESENT. Signed out by: Hugh Haines MD, Pathologist NPI- [id number] Performed by: Libby Rosales, Front Office Manager ([facility]) Gross description: 01 30ML, YELLOW, CLEAR /LCS 11/02/2021 1817 Local FLAG LEGEND: L-Low Normal,H-High Normal,LL-Alert Low,HH-Alert High <-Panic Low,>-Panic High,A-Abnormal,AA-Critical Abnormal Performed at: [address] [place] [address] Luis Carlos Tsang MD, [address] [facility] [address] [place] [address] Hugh Haines MD, Specimen Comment: A courtesy copy of this report has been sent to [phone], [phone]- Specimen Comment: [id number] Specimen Comment: Report sent to Dr. ZAMUDIO, DR RUIZ / DR HICKEY Performed at: [address], [place], [place] [id number] MD Luis Carlos Tsang MD Phone: [phone]
== END 2021-11-02 16:43 | disposition hospice, home (50) | DRG 432 ==
LOC: 6 SOUTH 20:15 → 5 SOUTH 21:16
PROVIDERS: ADMIT Internal Medicine; ATTEND Internal Medicine
PROC: 0W993ZZ Drainage of Right Pleural Cavity, Percutaneous Approach (ICD-10-PCS; principal; 2021-11-01)
DX: K70.31 Alcoholic cirrhosis of liver with ascites (principal); U07.1 COVID-19; E43 Unspecified severe protein-calorie malnutrition; J96.01 Acute respiratory failure with hypoxia; J90 Pleural effusion, not elsewhere classified; J98.11 Atelectasis; K76.6 Portal hypertension; D69.6 Thrombocytopenia, unspecified; D72.819 Decreased white blood cell count, unspecified; E78.5 Hyperlipidemia, unspecified; F11.11 Opioid abuse, in remission; F17.210 Nicotine dependence, cigarettes, uncomplicated; I10 Essential (primary) hypertension; J44.9 Chronic obstructive pulmonary disease, unspecified; K40.90 Unilateral inguinal hernia, without obstruction or gangrene, not specified as recurrent; K57.30 Diverticulosis of large intestine without perforation or abscess without bleeding; K72.10 Chronic hepatic failure without coma; Z51.5 Encounter for palliative care; Z66 Do not resuscitate; Z82.49 Family history of ischemic heart disease and other diseases of the circulatory system; Z90.49 Acquired absence of other specified parts of digestive tract; F32.A Depression, unspecified; K21.9 Gastro-esophageal reflux disease without esophagitis; Z68.31 Body mass index [BMI] 31.0-31.9, adult; Z88.8 Allergy status to other drugs, medicaments and biological substances
CPT/HCPCS: 32555; 36415; 71045; 71250; 76705; 80053; 81001; 82105; 82140; 83615; 83986; 84157; 85025; 85379; 85610; 85730; 86705; 86709; 86803; 87075; 87340; 87522; 89050; 93976; 94640; J0360; J0696; J1100; J1170; J1650; J2270; J2405; G0378